=== PATIENT | male | born 1970 | race Caucasian/White ===

== ENCOUNTER 2022-09-28 20:19 | Emergency (ER) | payer MEDICAID, OTHER ==
[~2022-09-28] VITALS: Ht 170.2 cm; Wt 63.6 kg
[2022-09-28] MEDS ORDERED: AMOX TR/POT CLAV 875 MG/125 MG TABLET PO ONE (22:15)
[2022-09-28] MEDS ORDERED: BACITRACIN 0.9 GM PACKET OINTMENT TP ONE (22:15)
[2022-09-28] MEDS ORDERED: AMOX1TAB16 PO (22:32)
[2022-09-28 22:37] VITALS: BP 132/68
== END 2022-09-28 22:53 | disposition home or self-care (01) ==
LOC: EMS 20:27
DX: S61.252A Open bite of right middle finger without damage to nail, initial encounter (principal); W54.0XXA Bitten by dog, initial encounter; Y93.89 Activity, other specified; Y92.89 Other specified places as the place of occurrence of the external cause; Y99.8 Other external cause status
CPT/HCPCS: 99283